=== PATIENT | female | born 1985 | race Hispanic/Latino ===

== ENCOUNTER 2016-09-18 10:15 | Observation (INO) | payer OTHER ==
[~2016-09-18] VITALS: Ht 142.2 cm; Wt 99.5 kg
[2016-09-18 10:05] VITALS: BP 105/43
--- NOTE | 2016-09-18 10:05 | NUR ---
PT ARRIVED FROM DOCTOR'S OFFICE TO BE INDUCED FOR POST DATES. , EDC 09/04/16, 42 WEEKS. HEIGHT AND WEIGHT OBTAINED. PT PROVIDED URINE FOR TESTING. ASSISTED TO BED, EFM STARTED. INITIAL ASSESSMENT DONE, CONSENTS SIGNED.
[~2016-09-18 10:15] MED LIST: CLINDAMYCIN300 M1 PO
[2016-09-18 10:42] LABS: BARBITURATES NEGATIVE (NEGATIVE); COCAINE NEGATIVE (NEGATIVE); METHADONE NEGATIVE (NEGATIVE); OXCYCODONE NEGATIVE (NEGATIVE); TETRAHYDROCANNABIONOL NEGATIVE (NEGATIVE); TRICYLIC ANTIDEPRESSANTS NEGATIVE (NEGATIVE)
[2016-09-18 10:43] LABS: URINE BILIRUBIN - DIPSTICK NEGATIVE (NEGATIVE); URINE BLOOD DIPSTICK MODERATE (NEGATIVE); URINE CLARITY SLIGHT CLOUDY; URINE COLOR YELLOW; URINE GLUCOSE - DIPSTICK NEGATIVE (NEGATIVE); URINE KETONE NEGATIVE (NEGATIVE); URINE LEUK ESTERASE NEGATIVE (NEGATIVE); URINE NITRITE - DIPSTICK NEGATIVE (Negative); URINE PROTEIN - DIPSTICK NEGATIVE (NEG-TRACE); URINE SPECIFIC GRAVITY 1.015; URINE UROBILINOGEN - DIPSTICK 0.2 E.U./dL (0.2)
--- NOTE | 2016-09-18 10:55 | NUR ---
IV ATTEMPT X 2, UNSUCESSFUL. PT IS EDEMATOUS TO LOWER AND UPPER EXTREMITIES. HOUSE DETECTIVE CALLED TO GET IV/LABS.
--- NOTE | 2016-09-18 11:15 | NUR ---
18G IV STARTED ON LEFT AC, LABS DRAWN, PER Kashif TORREZ CRNA.
--- NOTE | 2016-09-18 11:22 | NUR ---
PT MOVED TO ROOM 256 AMBULATORY AT THIS TIME.
[2016-09-18 11:31] LABS: HEMATOCRIT 37.2 % (37.0-47.0); HEMOGLOBIN 12.6 g/dl (12.0-16.0); IMMATURE GRANULOCYTES 0.6 % (0.0-1.0); MEAN CELL VOLUME 92.3 fL CALC (80.0-100.0); MEAN CORPUSCULAR HGB 31.3 pG CALC (26.0-32.0); MEAN CORPUSCULAR HGB CONC 33.9 g/L CALC (32.0-36.0); NEUT# 5.48 thou/uL (2.00-7.15); RED BLOOD COUNT 4.03 mill/uL (4.20-5.60); RED CELL DISTRI WIDTH 13.5 % (11.5-15.5)
[2016-09-18 11:35] VITALS: BP 117/55
--- NOTE | 2016-09-18 11:35 | NUR ---
SVE DONE, %/-2, FEELS VERTEX. PT ASSISTED TO RECLINER SEAT AT THIS TIME.
[2016-09-18 11:43] LABS: URINE BACTERIA RARE hpf; URINE SQUAMOUS EPITHELIAL CELL FEW EPI/hpf (0-FEW); URINE WBC 0-2 WBC/hpf (0-5)
--- NOTE | 2016-09-18 11:50 | NUR ---
DR. RUBIN NOTIFIED THAT PT IS HAVING SOME CONTRACTIONS ON HER OWN, ABOUT 6 MINUTES APART, ORDERS RECEIVE TO HOLD OFF ON THE PITOCIN FOR NOW AND JUST MONITOR PT.
[2016-09-18 12:06] LABS: ALBUMIN 3.2 g/dL (3.2-5.0); ALKALINE PHOSPHATASE 169 u/l (38-126); ANION GAP 13 (6-22 (CALC)); BILIRUBIN, TOTAL 0.3 mg/dL (0.0-1.4); BUN 10 mg/dL (7-17); BUN/CREATININE RATIO 16 (12-20 (CALC)); CALCIUM 8.6 mg/dL (8.4-10.2); CARBON DIOXIDE 19 mmol/l (22-30); CHLORIDE 109 mmol/l (95-108); CREATININE 0.6 mg/dL (0.5-1.0); GFR > 60 ML/MIN (>=60 (CALC)); GFR FOR AFR.AMER. > 60 ML/MIN (>=60 (CALC)); GLUCOSE 75 mg/dL (65-105); POTASSIUM 4.2 mmol/l (3.5-5.1); SGOT/AST 29 u/l (14-36); SGPT/ALT 30 u/l (9-52); SODIUM 137 mmol/l (137-146); TOTAL PROTEIN 6.2 g/dL (6.3-8.2)
[2016-09-18 12:15] VITALS: BP 102/59
--- NOTE | 2016-09-18 12:16 | NUR ---
PT UP AND AMBULATING IN THE HALLWAYS AT THIS TIME.
--- NOTE | 2016-09-18 12:47 | NUR ---
PT BACK TO RECLINER CHAIR, EFM RESTARTED. ENCOURAGED PT TO DRINK FLUIDS, BUT REFUSES IT AT THIS TIME. SIGNIFICANT OTHER AT BEDSIDE. DISCUSSED PLAN OF CARE WITH PT. PT RATES PAIN OF 7 ONLY WHEN SHE HAS CONTRACTIONS AND DENIES NEED FOR PAIN MEDICATION.
[2016-09-18 13:15] VITALS: BP 120/57
--- NOTE | 2016-09-18 13:15 | NUR ---
EFM STOPPED, PT UP AND AMBULATING IN THE HALLWAYS WITH SIGNIFICANT OTHER.
--- NOTE | 2016-09-18 13:47 | NUR ---
PT BACK TO RECLINER CHAIR AT THIS TIME, EFM RESTARTED.
--- NOTE | 2016-09-18 14:10 | NUR ---
PT UP TO BATHROOM TO VOID AT THIS TIME.
--- NOTE | 2016-09-18 14:14 | NUR ---
PT BACK TO BED AT THIS TIME.
--- NOTE | 2016-09-18 14:15 | NUR ---
DR. RUBIN AT BEDSIDE, ROBERT DONE, DISCUSSED PLAN OF CARE WITH PT. STRIPPED MEMBRANES IN ATTEMPT TO HELP WITH LABOR, WILL HOLD OFF ON PITOCIN. PT WAS GIVEN THE OPTION OF GOING HOME, BUT WISHES TO STAY AT THIS TIME.
--- NOTE | 2016-09-18 14:21 | NUR ---
PT UP AND AMBULATING IN THE HALLWAYS.
[2016-09-18 15:00] VITALS: BP 114/57
--- NOTE | 2016-09-18 15:00 | NUR ---
PT BACK TO ROOM, SITTING UP IN RECLINER. RATES PAIN SAME ONLY WITH CONTRACTIONS. VS DONE, STABLE. DENIES ANY NEEDS.
--- NOTE | 2016-09-18 15:35 | NUR ---
PT REQUESTING TO GO HOME, HAD DISCUSSED THIS EARLIER WITH PT. CONTRACTIONS ARE FAR APART, AND PT'S PAIN HAS NOT CHANGED. WILL CALL .
--- NOTE | 2016-09-18 15:40 | NUR ---
DR. RUBIN NOTIFIED OF PT'S REQUEST TO GO HOME, ORDERS RECEIVED.IVF STOPPED, AND IV DC'D AT THIS TIME, TIP INTACT, 2X2 APPLIED.
--- NOTE | 2016-09-18 15:45 | NUR ---
DISCHARGE INSTRUCTIONS GIVEN TO PT, INCLUDING WHEN TO RETURN TO THE HOSPITAL AND TO CALL THE OFFICE TOMORROW TO BE SEEN BY MD TOMORROW. PT AND SIGNIFICANT OTHER VERBALIZED UNDERSTANDING.
--- NOTE | 2016-09-18 15:55 | NUR ---
PT LEFT THE UNIT AMBULATORY, IN STABLE CONDITION, WITH SIGNIFICANT OTHER.
== END 2016-09-18 15:55 | disposition home or self-care (01) | DRG 782 ==
LOC: EDBD → OBOP 10:15 → OB 10:19 → OBOP 10:29 → OB 10:30 → EDBD 15:55 → OB 15:55
DX: O48.0 Post-term pregnancy (principal); Z3A.42 42 weeks gestation of pregnancy
CPT/HCPCS: G0378

== ENCOUNTER 2016-09-19 15:49 | Inpatient (IN) | payer SELFPAY ==
[~2016-09-19] VITALS: Ht 142.2 cm; Wt 100.6 kg
[2016-09-19] VITALS (23 sets, daily range): BP systolic 90–138; BP diastolic 51–85
--- NOTE | 2016-09-19 16:00 | NUR ---
, EDC 09/04/16. PT HERE FOR INDUCTION OF LABOR FOR POSTDATES. OBTAINED WT, HT, AND PT PLACED ON EFM. SIG OTHER AT SIDE AND SUPPORTIVE. Linda HORTON RN AND Alvin AQUINO RN ASSISTED WITH INTERPERATING WHEN NEEDED THROUGH ADMIT PROCESS.
--- NOTE | 2016-09-19 16:20 | NUR ---
IV STARTED X 1 ATTEMPT IN LFA. BLOOD BANDS OBTAINED FROM SITE, SALINE LOCKED.
--- NOTE | 2016-09-19 16:42 | NUR ---
SVE DONE, CERVIX IS FINGERTIP, 20%, AND POSTERIOR. PRESENTING PART IS BALLOTABLE, UTD PRESENTATION. DR RUBIN CHECKED IN OFFICE TODAY AND REPORTS CEPHALIC.
--- NOTE | 2016-09-19 16:43 | NUR ---
LR STARTED AT 500 ML IVF BOLUS, RUNNING WELL. OBTAINED CONSENTS FOR ADMIT, AND INDUCTION OF LABOR, ETC.
--- NOTE | 2016-09-19 16:53 | NUR ---
PITOCIN STARTED AT 4 MU/MIN, CATAGORY 1 FHR, OCCATIONAL CTX, MILD TO PALPATION, SOFT RESTING TONE. SIG OTHER REMAINS AT SIDE AND SUPPORTIVE. JAMARCUS HORTON RN VARIFIED PITOCIN AND REVIEWED INDUCTION OF LABOR IN AMHARIC TO PT. NO QUESTIONS OR CONCERNS AT THIS TIME, WATCHING TV.
--- NOTE | 2016-09-19 17:34 | NUR ---
PT UP IN BED WATCHING TV. SIG OTHER AT SIDE AND SUPPORTIVE. CTX ARE MODERATE WITH SOFT RESTING TONE, PAIN IS 3/10, TOELRATING WELL WITH BREATHING. NO CHANGE IN PITOCIN LEVEL AT THIS TIME DUE TO CTX 09/29. CATAGORY 1 FHR.
--- NOTE | 2016-09-19 17:48 | NUR ---
PT RETURNED TO BED, VOIDED 400 ML. STERILE SPEC EXAM SHOWS MUCUS AND DISCHARGE, SOME CLEAR, SOME WHITE, SOME BROWN TINGED. NO POOLING OF AMNIOTIC FLUID NOTED, NO FERN OR ROM + DONE DUE TO PREVIOUS SVE. WILL MONITOR FOR MORE LEAKING OF FLUID.
--- NOTE | 2016-09-19 17:50 | NUR ---
PT UP TO BRP, STATES POSSIBLE SROM WHILE ON THE WAY TO TOILET, WILL CHECK UPON RETURN TO BED, PERICAE DONE.
--- NOTE | 2016-09-19 18:35 | NUR ---
DR RUBIN IN TO SEE PT, SVE DONE, 2 CM, -4 STATION, THICK, BULGING MEMBRANES NOTED.
--- NOTE | 2016-09-19 18:38 | NUR ---
REPORT IS READY FOR NEXT SHIFT, PITOCIN REMAINS AT 4MU/MIN. DR RUBIN CONFIRMED NO SROM. CTX CONTINUING, FHT CAT 1. CONDITION IS STABLE. SIG OTHER REMAINS AT BEDSIDE AND SUPPORTIVE. NO FURTHER NEEDS AT THIS TIME.
--- NOTE | 2016-09-19 19:00 | NUR ---
INTRODUCED SELF TO PT. HEAD TO TOE ASSESSMENT COMPLETED. ASSESSMENT WNL WITH +1 PEDAL EDEMA. PT RATES PAIN 3/10 IN LOWER ABDOMEN. SIGNIFICANT OTHER AT BEDSIDE. PT DENIES ANY NEEDS AT THIS TIME. PT BREATHING THROUGHT OCCASIONAL CONTRACTIONS. ENCOURAGED PT TO CALL WITH ANY NEEDS. WILL CONTINUE TO MONITOR.
--- NOTE | 2016-09-19 20:30 | NUR ---
PT OOB TO BR TO VOID. PT C/O LEAKING OF FLUID. TOWEL PROVIDED. PT STATES PAIN IS GETTING STRONGER 5-6 OUT OF 10. PT DENIES PAIN MEDICATION. BACK TO BED. SVE PERFORMED /-4 POSTERIOR. UNABLE TO TELL IF MEMBRANES INTAKE D/T STATION. NO FLUID NOTED WITH DIGITAL EXAM. WILL CONTINUE TO MONITOR. SIGNIFICANT OTHER AT BEDSIDE. PT DENIES ANY OTHER NEEDS AT THIS TIME. ENCOURAGED PT TO CALL WITH NEEDS OR CONCERNS.
--- NOTE | 2016-09-19 20:30 | NUR ---
PITOCIN INCREASED TO 6 MIL/MIN
--- NOTE | 2016-09-19 21:30 | NUR ---
DR. RUBIN AT BEDSIDE. SVE PERFORMED /-3. PT BREATHING WELL WITH CONTRACTIONS, BUT TEARFUL DURING. DR. RUBIN SUGGESTED PAIN MEDICATION TO PT. PT STATES WILL TAKE AT THIS TIME. CHANGED POSITION TO THRONES. US ADJUSTED. WILL MEDICATED PER ORDERS.
--- NOTE | 2016-09-19 22:00 | NUR ---
PT OOB TO BR TO VOID. PT TOLERATED WELL. PT RATING PAIN 8/10- MEDICATED ORDERED, SEE EMAR. PT REPOSITIONED IN THRONES POSITION, PT REFUSED SIDE-LYING. PITOCIN INCREASED TO 8 MIL/MIN, CTX 2-5 MIN, MODERATE IN PALPATION. SIGNIFICANT OTHER AT BEDSIDE AND SUPPORTIVE. PT DENIES ANY OTHER NEEDS AT THIS TIME. ENCOURAGED PT TO CALL.
--- NOTE | 2016-09-19 23:29 | NUR ---
DR. RUBIN AT BEDSIDE. SVE PERFORMED BBOW. PITOCIN DECREASED TO 7 MIL/MIN PER DR. RUBIN REQUEST. PT BREATHING WELL THROUGH CONTRACTIONS. PT REPOSITIONED INTO THRONES POSITION. SIGNIFICANT OTHER AT BEDSIDE AND SUPPORTIVE. NO OTHER NEEDS EXPRESSED, ENCOURAGED PT TO CALL.
[2016-09-20] VITALS (29 sets, daily range): BP systolic 106–144; BP diastolic 50–72
--- NOTE | 2016-09-20 01:30 | NUR ---
PT OOB TO BR TO VOID. SIGNIFICANT OTHER AT BEDSIDE ASSITING WITH AMBUALTION. CONTRACTION PALPATE MODERATE. PITOCIN INCREASED TO 8 SAMANTHA/MIN CONTRACTIONS EVERY 2-5 MIN. PT REQUESTING PAIN MEDICATION WILL MEDICATE PER ORDERS. PT TURNED TO RIGHT SIDE, US ADJUSTED.
--- NOTE | 2016-09-20 02:07 | NUR ---
SVE 6/100/-1 BBOW. PT AMBULATED TO ROOM 1 WITH SIGNIFICANT OTHER AT SIDE. PT RATING PAIN 9/10, MEDICATED ORDERED. PT IN SEMI-HALL POSITION.
--- NOTE | 2016-09-20 03:30 | NUR ---
PT RESTING WITH EYES CLOSED WHEN ENTERED THE ROOM. PT STATES RELIEF FROM THE PAIN MEDICATION. ENCOURAGED PT TO TURN TO OTHER SIDE. PT TURNED TO RIGHT SIDE. PT DENIES ANY OTHER NEEDS AT THIS TIME. ENCOURAGED PT TO CALL WITH NEEDS OR CONCERNS. SIGNIFICANT OTHER AT BEDSIDE AND BEING SUPPROTIVE.
--- NOTE | 2016-09-20 04:05 | NUR ---
0356 US ADJUSTED AND PT TURNED TO LEFT SIDE. SVE 9/100/-1 BBOW. SROM AT 0358 THIN MECONIUM. PT MOVED SUPINE. EDUCATED PT THAT NEEDED TO SIT UP OR TURN TO A SIDE TO FACILITATE OXYGENATION TO FETUS. PT PLACED IN THRONE POSITION. SIGNIFICANT OTHER AT BEDSIDE AND SUPPORTIVE.
--- NOTE | 2016-09-20 04:34 | NUR ---
DR. RUBIN CALLED TO GET A STATUS UPDATE. INFORMED OF SVE AND RUPTURE TIME. NO NEW ORDERS RECEIVED.
--- NOTE | 2016-09-20 05:40 | NUR ---
SVE AT 0524 10/100/+1, TRAIL PUSH WITH PT WHO WAS ABLE DESCEND HEAD TO PERINEUM. DR. RUBIN NOTIFIED TO ATTEND DELIVERY. DR. RUBIN AT BEDSIDE AT 0527. OF VIABLE MALE AT 0536. SPONTANEOUS CRY NOTED. PITOCIN STARTED PER DR. RUBIN AT 0538 AT 999 ML/HR. PLACENTA DELIVERED INTACT AT 0540. DR. RUBIN REQUESTING PLACENTA BE SENT TO PATHOLOGY. FUNDUS FIRM 1/U SCANT RUBRA LOCHIA NOTED. BLANCA CARE PROVIDED. INFANT SKIN TO SKIN WITH MOTHER AT THIS TIME IN STABLE CONDITION. SIGNIFICANT OTHER AT BEDSIDE LOOKING AT . NO NEEDS EXPRESSED AT THIS TIME. WILL CONTINUE TO MONITOR.
--- NOTE | 2016-09-20 07:00 | NUR ---
REPORT RECEIVED FROM KOSTAS LANDEROS. PATIENT STILL IN BIRTHING ROOM . WAS ALSO MEDICATED FOR ABDOMINAL PAIN.
--- NOTE | 2016-09-20 07:30 | NUR ---
PERICARE DONE AND EXPLAINED. RETURN DEMONSTRATION DONE. MOVED TO ROOM. INSTRUCTIONS REVIEWED WITH BOTH PARENTS WHO VERBALISE UNDERSTANDING. BREAKFAST OFFERED. WILL CONTINUE TO MONITOR.
--- NOTE | 2016-09-20 17:05 | NUR ---
in room with s/o. denies pain. vital signs wnl. no concerns.
--- NOTE | 2016-09-20 18:50 | NUR ---
IN ROOM . END OF SHIFT REPORT GIVEN TO VERONIKA LANDEROS.
--- NOTE | 2016-09-20 19:00 | NUR ---
PT RECEIVED SITTING UP IN CHAIR . PROPER POSITIONING AND LATCH ON OBSERVED. PT DENIES ANY C/O DISCOMFORT AT THIS TIME.
--- NOTE | 2016-09-20 19:55 | NUR ---
ASSESSMENT COMPLETED CHARTED. PT IS CARING FOR APPROPRIATELY, WITHOUT DIFFICUTLY. DENIES ANY C/O DISCOMFORT AT THIS TIME. PT IS BACK IN CHAIR WITH INFANT IN ARMS. CALLBELL WITHIN REACH.
--- NOTE | 2016-09-20 21:15 | NUR ---
PT RESTING QUIETLY IN BED WITH EYES CLOSED, RESPIRATIONS UNLABORED, NO APPARENT DISTRESS OBSERVED. CALLBELL WITHIN REACH. SLEEPING IN OPEN CRIB AT BEDSIDE.
--- NOTE | 2016-09-20 23:50 | NUR ---
PT AWAKE, BREASTFED WITHOUT DIFFICULTY; PT C/O UTERINE CRAMPING, RATING PAIN LEVEL AT 5:10; MEDICATED ORDERED WITH MOTRIN 600 MG PO, ALSO MEDICATED ORDERED WITH PERICOLACE X 2. RESETTLED FOR SLEEP WITH CALLBELL WITHIN REACH. ON BACK, IN OPEN CRIB AT BEDSIDE.
--- NOTE | 2016-09-21 01:15 | NUR ---
PT NOW RESTING QUIETLY IN BED WITH EYES CLOSED, RESPIRATIONS UNLABORED, NO APPARENT DISTRESS OBSERVED AT THIS TIME.
--- NOTE | 2016-09-21 02:35 | NUR ---
PT CONTINUES RESTING QUIELTY IN BED WITH EYES CLOSED, RESPIRATIONS UNLABORED. CALLBELL WITHIN REACH.
--- NOTE | 2016-09-21 03:50 | NUR ---
PT RESTING QUIETLY IN BED, DENIES ANY C/O DISCOMFORT AT THIS TIME. RESETTLED FOR SLEEP, CALLBELL WITHIN REACH.
--- NOTE | 2016-09-21 05:30 | NUR ---
PT RESTING QUIETLY IN BED. VSS CHARTED, LAB DRAWN ORDERED. PT DENIES ANY C/O DISCOMFORT AT THIS TIME. PT HAS BEEN CARING FOR INFANT APPROPRIATELY THROUGH SHIFT. POSITIVE BONDING OBSERVED.
[2016-09-21 05:37] VITALS: BP 107/55
[2016-09-21 06:02] LABS: HEMATOCRIT 29.3 % (37.0-47.0); HEMOGLOBIN 9.9 g/dl (12.0-16.0); IMMATURE GRANULOCYTES 0.7 % (0.0-1.0); MEAN CELL VOLUME 93.3 fL CALC (80.0-100.0); MEAN CORPUSCULAR HGB 31.5 pG CALC (26.0-32.0); MEAN CORPUSCULAR HGB CONC 33.8 g/L CALC (32.0-36.0); NEUT# 5.62 thou/uL (2.00-7.15); RED BLOOD COUNT 3.14 mill/uL (4.20-5.60); RED CELL DISTRI WIDTH 13.7 % (11.5-15.5)
--- NOTE | 2016-09-21 07:30 | NUR ---
RESTS WITH EYES CLOSED, ALLOWED TO REST.
--- NOTE | 2016-09-21 08:00 | NUR ---
DR RUBIN IN TO SEE PT, PT MAY BE DISCHARGED TODAY. PT DENIES PAIN.
[2016-09-21] MEDS ORDERED: IBUPROFEN600 MG PO (09:48)
[2016-09-21] MEDS ORDERED: FERR SULFATE325 MG PO (09:54)
--- NOTE | 2016-09-21 10:00 | NUR ---
DISCHARGE PLAN REVIEWED, PT ACKNOWLEDGES UNDERSTANDING.
--- NOTE | 2016-09-21 11:26 | NUR ---
PT SITS IN BED DENIES PAIN. STATES SHE DOES NOT WANT FLU VACCINE AFTER BEING INFORMED IT IS END OF SEASON. VACCINE CONSENT PAPER AMMENDED.
[2016-09-21] MEDS ORDERED: PERI-COLACE1 TAB PO (12:02)
--- NOTE | 2016-09-21 12:45 | NUR ---
DISCHARGE PLAN REVIEWED, PT ACKNOWLEDGES UNDERSTANDING, PT PREPARED FOR DISCHARGE.
--- NOTE | 2016-09-21 12:50 | NUR ---
PT STSTES SHE HAD BM.
--- NOTE | 2016-09-21 14:17 | NUR ---
Discharge instructions given and reviewed. Pt. verbalizes understanding. Discharged in good condition via Wheelchair to Home with in carseat accompanied by family.
== END 2016-09-21 13:00 | disposition home or self-care (01) | DRG 775 ==
LOC: EDBD 15:49 → OB 15:49
PROC: 3E033VJ Introduction of Other Hormone into Peripheral Vein, Percutaneous Approach (ICD-10-PCS; 2016-09-19)
PROC: 10E0XZZ Delivery of Products of Conception, External Approach (ICD-10-PCS; principal; 2016-09-20)
DX: O48.0 Post-term pregnancy (principal); D62 Acute posthemorrhagic anemia; O90.81 Anemia of the puerperium; Z3A.42 42 weeks gestation of pregnancy; Z37.0 Single live birth

== ENCOUNTER 2017-10-06 20:55 | Emergency (ER) | payer SELFPAY ==
[~2017-10-06] VITALS: Ht 142.2 cm; Wt 95.0 kg
[~2017-10-06 20:55] MED LIST changes: +FERR SULFATE325 MG PO; +IBUPROFEN600 MG PO; +PERI-COLACE1 TAB PO
[2017-10-06 21:44] LABS: HEMATOCRIT 37.3 % (37.0-47.0); HEMOGLOBIN 12.8 g/dl (12.0-16.0); IMMATURE GRANULOCYTES 0.4 % (0.0-1.0); MEAN CELL VOLUME 94.9 fL CALC (80.0-100.0); MEAN CORPUSCULAR HGB 32.6 pG CALC (26.0-32.0); MEAN CORPUSCULAR HGB CONC 34.3 g/L CALC (32.0-36.0); NEUT# 4.07 thou/uL (2.00-7.15); RED BLOOD COUNT 3.93 mill/uL (4.20-5.60); RED CELL DISTRI WIDTH 12.2 % (11.5-15.5)
[2017-10-06 21:55] LABS: ALKALINE PHOSPHATASE 91 u/l (38-126); AMYLASE 93 u/l (30-110); ANION GAP 18 (6-22 (CALC)); BILIRUBIN, TOTAL 0.3 mg/dL (0.0-1.4); BUN 12 mg/dL (7-17); BUN/CREATININE RATIO 26 (12-20 (CALC)); CARBON DIOXIDE 20 mmol/l (22-30); CHLORIDE 105 mmol/l (95-108); CREATININE 0.5 mg/dL (0.5-1.0); GFR > 60 ML/MIN (>=60 (CALC)); GFR FOR AFR.AMER. > 60 ML/MIN (>=60 (CALC)); LIPASE 74 u/l (23-300); POTASSIUM 3.9 mmol/l (3.5-5.1); SGOT/AST 23 u/l (14-36); SGPT/ALT 35 u/l (9-52); SODIUM 139 mmol/l (137-146)
[2017-10-06 21:59] LABS: ALBUMIN 4.4 g/dL (3.2-5.0); TOTAL PROTEIN 7.9 g/dL (6.3-8.2)
[2017-10-06 22:07] LABS: MYOGLOBIN 15 ng/mL (0 - 62)
[2017-10-06] MEDS ORDERED: NAPROSYN500 MG PO (22:15)
[2017-10-06 22:35] VITALS: BP 118/70
== END 2017-10-06 22:35 | disposition home or self-care (01) | DRG 313 ==
LOC: ED 20:55
PROVIDERS: Emergency Medicine
DX: R07.89 Other chest pain (principal)

== ENCOUNTER 2021-01-17 08:37 | Emergency (ER) | payer SELFPAY ==
[~2021-01-17] VITALS: Ht 142.2 cm; Wt 98.0 kg
[~2021-01-17 08:37] MED LIST changes: +NAPROSYN500 MG PO
[2021-01-17 10:04] VITALS: BP 124/58
== END 2021-01-17 10:15 | disposition home or self-care (01) | DRG 74 ==
LOC: ED 08:37
DX: G56.01 Carpal tunnel syndrome, right upper limb (principal)